=== PATIENT | female | born 1990 ===

== ENCOUNTER 2018-04-05 09:15 | Inpatient (IN) | payer OTHER ==
[2018-04-05 09:51] VITALS: BMI 28.5
[2018-04-05] MEDS ORDERED: AMPICILLIN SODIUM 2 GM VIAL ONE (09:52)
[2018-04-05] MEDS ORDERED: LIDOCAINE HCL 1% PRESERVATIVE FREE - 30ML VIAL ONE (10:08)
[2018-04-05] MEDS ORDERED: OXYTOCIN 20 UNITS in 0.9% NS 20 UNIT/1,000 ML INFUS.BAG IV ONE ×2 (10:08→12:25)
[2018-04-05 10:09] LABS: BASO % 0.2 % (0-2.0); EOS % 0.4 % (0-4.5); HEMATOCRIT 34.8 % (32.4-45.2); HEMOGLOBIN 11.6 GM/dL (10.7-15.3); LYMPH % 20.7 % (8-40); MCH 26.6 pg (25.7-33.7); MCHC 33.3 g/dl (32.0-36.0); MEAN CELL VOLUME 79.9 fl (80-96); MEAN PLT VOLUME 10.4 fl (7.5-11.1); MONO % 6.4 % (3.8-10.2); NEUT % 72.3 % (42.8-82.8); PLATELET COUNT 190 K/MM3 (134-434); RBC 4.36 M/mm3 (3.60-5.2); RDW 19.2 % (11.6-15.6)
[2018-04-05 10:24] LABS: INR 0.99 (0.83-1.09); PROTHROMBIN TIME (PATIENT) 11.7 SEC (9.7-13.0)
[2018-04-05 10:26] LABS: ACTIVATED PTT 31.5 SECONDS (25.2-36.5)
[2018-04-05 10:36] LABS: ANION GAP 9 MMOL/L (8-16); BLOOD UREA NITROGEN 8 mg/dL (7-18); CALCIUM 8.7 mg/dL (8.5-10.1); CHLORIDE 109 mmol/L (98-107); CO2 22 mmol/L (21-32); CREATININE 0.8 mg/dL (0.55-1.3); GLUCOSE,RANDOM 85 mg/dL (74-106); SODIUM 140 mmol/L (136-145)
[2018-04-05] MEDS: OXYTOCIN 20 UNITS in 0.9% NS 20 UNIT/1,000 ML INFUS.BAG IV SCH ×2 (10:50→19:30)
[2018-04-05] MEDS ORDERED: TUBERCULIN PPD 5 TU/0.1ML SYRINGE (IN PATIENT USE ONLY) ID ONE (11:00)
[2018-04-05] MEDS ORDERED: WITCH HAZEL 50% (TUCKS) 40 PAD/JAR PAD TP PRN (11:04)
[2018-04-05] MEDS ORDERED: BENZOCAINE 28 GM HEMORRHOIDAL OINTMENT TP PRN (11:04)
[2018-04-05] MEDS ORDERED: METHYLERGONOVINE MALEATE 0.2 MG/1 ML AMP IM PRN (11:04)
[2018-04-05] MEDS ORDERED: BENZOCAINE 20% 57 GM BOTTLE TP PRN (11:04)
--- NOTE | 2018-04-05 11:09 | HP ---
Past Medical History - Admission Chief Complaint: Uterine contractions History of Present Illness: 27yo @ 34+wks with mono/di twins presents with uterine contractions. No VB. +LOF at 745AM, ctx since 8AM. +FM x s PNC in [facility], late transfer to care here. History of prior C/S - Past Medical History WEATHERIZATION COORDINATOR: No: Alzheimer's, CVA, Dementia, Migraine, Multiple Sclerosis, Peripheral Neuropathy, Parkinson's, Seizure, Syncope, TIA, Vertigo, Other Cardiovascular: No: AFIB, Aneurysm, Aortic Insufficiency, Aortic Stenosis, CAD, CHF, Deep Vein Thrombosis, HTN, Hyperlipdemia, [place], Mitral Insufficiency, Mitral Stenosis, Murmur, Pulmonary Hypertension, Other Pulmonary: No: Asthma, Bronchitis, Cancer, COPD, O2 Dependent, Pneumonia, Previously Intubated, Pulmonary Embolus, Pulmonary Fibrosis, Sleep Apnea, Other Gastrointestinal: No: Ascites, Cancer, Constipation, Crohn's Disease, Diverticulitis, Diverticulosis, Esophageal Varices, Gastritis, GERD, GI Bleed, Hemorrhoids, Hiatal Hernia, Inflamatory Bowel Disease, Irritable Bowel Disease, Pancreatitis, Peptic Ulcer Disease, Ulcerative Colitis, Other Hepatobiliary: No: Cirrhosis, Cholelithiasis, Cholecystitis, Choledocholithiasis , Hepatitis A, Hepatitis B, Hepatitis C, Other Renal/: No: Renal Failure, Renal Inusuff, BPH, Cancer, Hematuria, Hemodialysis , Neurogenic Bladder, Renal Calculi, UTI, Other ...: 2 ...Para: 1 ...Term: 1 ...: 0 ...Spon : 0 ...Induced : 0 ...Multiple Gestation: 0 ...EDC by Sono: 05/12/18 Heme/Onc: No: Anemia, B12 Deficiency, Bleeding Disorder, Cancer, Current Chemotherapy, Current Radiation Therapy, Hemochromatosis, Hypercoaguable State, Myeloproliferative Synd, Sickle Cell Disease, Sickle Cell Trait, Thrombocytopenia, Other Infectious Disease: No: AIDS, C-Diff, Herpes Zoster, HIV, MRSA, STD's, Tuberculosis, VREF, Other Psych: No: Addictions, Anxiety, Bipolar, Depression, Panic, Psychosis, Schizophrenia, Other Musculoskeletal: No: Bursitis, Chronic low back pain, Hemiparesis, Hemiplegia, Osteoarthritis, Paraplegia, Other Rheumatology: No: Fibromyalgia, Gout, Lupus, Rheumatoid Arthritis, Sarcoidosis, Vasculitis, Other - Past Surgical History Hx Myomectomy: No Hx Transabdominal Cerclage: No - Smoking History Smoking history: Never smoked Have you smoked in the past 12 months: No - Alcohol/Substance Use Hx Alcohol Use: No - Social History Usual Living Arrangement: Yes: With Spouse ADL: Independent History of Recent Travel: Yes Home Medications - Allergies Allergies/Adverse Reactions: Allergies Allergy/AdvReac Type Severity Reaction Status Date / Time No Known Allergies Allergy Verified 04/05/18 09:42 - Home Medications Home Medications: Ambulatory Orders Ferrous Sulfate 325 mg PO DAILY 04/05/18 Pnv No.95/Ferrous Fum/Folic AC [ Vitamin Tablet] 1 each PO DAILY Physical Exam - Maternity Vital Signs: Vital Signs Temperature 99.7 F H 04/05/18 09:15 Pulse Rate 114 H 04/05/18 09:15 Respiratory Rate 20 04/05/18 09:15 Blood Pressure 136/85 04/05/18 09:15 O2 Sat by Pulse Oximetry (%) - Abdominal Exam/OB Number of Fetuses: Single Presentation: Vertex Contractions: Yes Regularity: Regular Intensity: Mod/Strong Monitor Mode: External Category: I Accelerations: Uniform Decelerations: None - Vaginal Exam/OB Dilatation (cm): 9 Effacement (%): 100 Amniotic Membrane Status: Ruptured Nitrazine Test: Positive Amniotic Fluid: Yes: Clear Presentation: Vertex/Position Station: 0 - Physical Exam Edema: No - Labs Lab Results: CBC, BMP 04/05/18 09:35 04/05/18 09:35 Assessment/Plan 27yo @ 34+wks here in active labor, imminent delivery Upon arrival, patient C/C/0 and pushing. Amp given given PTL NICU called Cat 1 x 2, vertex vertex by sono Anticipate x 2 Tonya Vyas MD
[2018-04-05] MEDS ORDERED: MISOPROSTOL 100 MCG TABLET PV ONE (11:15)
[2018-04-05] MEDS ORDERED: DEXTROSE 5%-LACTATED RINGERS 1,000 ML IV SCH (11:15)
--- NOTE | 2018-04-05 11:21 | PN ---
Delivery - Delivery Vaginal Delivery: V-Deb, Vacuum Assist Type of Anesthesia: Local Episiotomy/Laceration: Midline, 1st degree EBL (cc): 500 Delivery, Single - Stages of Labor Placenta: Yes: Spontaneous - Condition of Shellacker/Registered Art Therapist Present: Yes Infant Gender: Female - Feeding Plan Initial Plan: Elected not to breastfeed exclusively throughout hospitalization Delivery, Multiple Births - Condition of Multiple Births 1 (A) Gender: Female Position: Left, OA Placenta: Yes: Spontaneous [place] 2 (B) Shellacker/Registered Art Therapist Present: Yes Infant Gender: Female Position: OA Placenta: Yes: Spontaneous - [place] 1 (A) 1 Minute Score: 8 5 Minutes Score: 9 [place] 2 (B) 1 Minute Score: 9 [place] 2 (B) 5 Minutes Score: 9 Remarks - Remarks Remarks: Patient pushing with poor effort and compliance. FHT for baby A in the 190's. Decision made to proceed with vacuum assisted vaginal delivery. head at 1 + station, REJI. Vacuum placed, checked and cleared of vaginal tissue. With gentle traction and maternal effort, one pull done. No pop off. . Vacuum removed. of VFI over intact perineum from REJI position. Spontaneous delivery of anterior shoulder. Cord clamped and cut. Infant handed off. Weight 4.6lbs Apgars 8/9. Patient re-examined. head with membranes palpated. Using amnio-hook, AROM of clear fluid. Patient instructed to push, able to push head to 1+ station with several pushes. Then stopped pushing and unable to compose herself to push. presentation noted to be ALEXEI. Vacuum reapplied, checked and cleared of vaginal tissue. With maternal effort, patient pushed while gentle traction with the vacuum applied. head descended to 2 + with one push. Mom's second pushed with vacuum traction, was able to push to . Vacuum removed. of VFI from direct OA presentation over first degree laceration. Spontaneous delivery of anterior shoulder. Cord clamped and cut. Infant handed off. Weight 4.1lbs. Apgars 9/9. Spontaneous delivery of intact placenta with 3VC. Fundus firm with massage, but 400cc quickly expressed , Methergine IM given in addition to 1000mcg of [place] cytotec which was given after vaginal laceration repair. 1st degree laceration repaired with 2-0 chromic with good hemostasis and cosmesis. Bleeding improved. EBL 500. Mother and babies doing well. Tonya Vyas MD
[2018-04-05] MEDS ORDERED: ELECTROLYTE-148 SOLN 1,000 ML IV SCH (11:30)
[2018-04-05] MEDS ORDERED: MISOPROSTOL 200 MCG TABLET PV ONE ×3 (11:45)
[2018-04-05] MEDS ORDERED: ACETAMINOPHEN 325 MG TABLET (FP) ONE (13:06)
[2018-04-05] MEDS: ACETAMINOPHEN 325 MG TABLET (FP) PO PRN ×2 (13:08→18:45)
[2018-04-05] MEDS: IBUPROFEN 600 MG TABLET (FP) PO PRN (19:47)
[2018-04-05] MEDS: SENNOSIDES/DOCUSATE COMBO (SENNA PLUS) TABLET (UD) PO PRN (21:57)
[2018-04-05] MEDS: FERROUS SO4 325 MG TABLET (FP) PO SCH (21:57)
[2018-04-06] MEDS: OXYTOCIN 20 UNITS in 0.9% NS 20 UNIT/1,000 ML INFUS.BAG IV SCH ×2 (02:13→11:32)
[2018-04-06] MEDS: ACETAMINOPHEN 325 MG TABLET (FP) PO PRN ×3 (07:21→21:30)
[2018-04-06 07:27] LABS: BASO % 0.3 % (0-2.0); EOS % 0.6 % (0-4.5); HEMATOCRIT 31.9 % (32.4-45.2); HEMOGLOBIN 10.1 GM/dL (10.7-15.3); LYMPH % 15.1 % (8-40); MCH 25.4 pg (25.7-33.7); MCHC 31.5 g/dl (32.0-36.0); MEAN CELL VOLUME 80.8 fl (80-96); MEAN PLT VOLUME 9.5 fl (7.5-11.1); MONO % 5.8 % (3.8-10.2); NEUT % 78.2 % (42.8-82.8); PLATELET COUNT 139 K/MM3 (134-434); RBC 3.95 M/mm3 (3.60-5.2); RDW 20.2 % (11.6-15.6); WHITE BLOOD COUNT 13.3 K/mm3 (4.0-10.0)
--- NOTE | 2018-04-06 07:27 | PN ---
Post Progress Note Type of Delivery: Vacuum Assist Vag Del Vital Signs: Vital Signs Temperature 99.6 F 04/06/18 06:00 Pulse Rate 100 H 04/06/18 06:00 Respiratory Rate 18 04/06/18 06:00 Blood Pressure 127/80 04/06/18 06:00 O2 Sat by Pulse Oximetry (%) 100 04/05/18 11:55 Uterus: Yes: Fundus below umbilicus Abdomen/GI: Yes: Abdomen soft Lochia: Yes: Rubra Lochia, amount: Small Extremities: Yes: Calves non-tender Perineum: Yes: Intact Activity: Ambulating (Doing well. Babies in NICU) - Labs Labs: CBC WBC 12.0 K/mm3 (4.0-10.0) H 04/05/18 09:35 RBC 4.36 M/mm3 (3.60-5.2) 04/05/18 09:35 Hgb 11.6 GM/dL (10.7-15.3) 04/05/18 09:35 Hct 34.8 % (32.4-45.2) 04/05/18 09:35 MCV 79.9 fl (80-96) L 04/05/18 09:35 MCH 26.6 pg (25.7-33.7) 04/05/18 09:35 MCHC 33.3 g/dl (32.0-36.0) 04/05/18 09:35 RDW 19.2 % (11.6-15.6) H 04/05/18 09:35 Plt Count 190 K/MM3 (134-434) 04/05/18 09:35 MPV 10.4 fl (7.5-11.1) 04/05/18 09:35 Absolute Neuts (auto) 8.7 K/mm3 (1.5-8.0) H 04/05/18 09:35 Neutrophils % 72.3 % (42.8-82.8) 04/05/18 09:35 Lymphocytes % 20.7 % (8-40) 04/05/18 09:35 Monocytes % 6.4 % (3.8-10.2) 04/05/18 09:35 Eosinophils % 0.4 % (0-4.5) 04/05/18 09:35 Basophils % 0.2 % (0-2.0) 04/05/18 09:35 Nucleated RBC % 0 % (0-0) 04/05/18 09:35 Assessment/Plan 27yo s/p of twins at 34wks Rh+/babies in NICU, girl/girl Routine PP care OOB, ambulate Anticipate d/c to home PPD#2 Tonya Vyas MD
--- NOTE | 2018-04-06 09:10 | PN ---
Progress Note (short form) - Note Progress Note: Pt with temp again today 101, but exam unremarkable. WBC reviewed, 13. Will cont to monitor as there is no clear source or symptoms for the temp.
[2018-04-06] MEDS ORDERED: DIPHTH,PERTUSS(ACELL),TET 0.5 ML DISP.SYRIN IM ONE (10:00)
[2018-04-06] MEDS ORDERED: FLU VACCINE QUAD 60 MCG/0.5 ML (MDV 18-19) IM ONE (10:00)
[2018-04-06] MEDS: FERROUS SO4 325 MG TABLET (FP) PO SCH ×2 (13:29→21:29)
[2018-04-06] MEDS: PRENATAL VITAMINS W/ FOLIC ACID TABLET (FP) PO SCH (13:29)
[2018-04-06] MEDS: SENNOSIDES/DOCUSATE COMBO (SENNA PLUS) TABLET (UD) PO PRN (21:30)
[2018-04-06] MEDS: IBUPROFEN 600 MG TABLET (FP) PO PRN (21:30)
--- NOTE | 2018-04-07 09:53 | DS ---
Physical Exam-DOOR CORE ASSEMBLER Vital Signs: Vital Signs Temperature 98.4 F 04/07/18 05:48 Pulse Rate 97 H 04/06/18 21:47 Respiratory Rate 18 04/06/18 21:47 Blood Pressure 116/75 04/06/18 21:47 O2 Sat by Pulse Oximetry (%) 100 04/05/18 11:55 Constitutional: Yes: Well Nourished Eyes: Yes: Conjunctiva Clear HENT: Yes: Atraumatic Neck: Yes: Supple Cardiovascular: Yes: Regular Rate and Rhythm Respiratory: Yes: Regular Gastrointestinal: Yes: Normal Bowel Sounds External Genitalia: Yes: Normal Vaginal Exam: Yes: Normal Cervix: Yes: Normal Uterus: Yes: Firm ....Post : Yes: Uterus firm Neurological: Yes: Alert, Oriented ...Motor Strength: WNL Psychiatric: Yes: Alert, Oriented Labs: CBC, BMP 04/06/18 06:30 04/05/18 09:35 Delivery - Delivery Vaginal Delivery: V-Deb, Vacuum Assist Type of Anesthesia: Local Episiotomy/Laceration: Midline, Perineal Extension/lac, 1st degree EBL (cc): 500 Delivery, Single - Stages of Labor Placenta: Yes: Spontaneous - Condition of Neonatal Specialist/Artifacts Conservator Present: Yes Gender: Female - Feeding Plan Initial Plan: Elected not to breastfeed exclusively throughout hospitalization Delivery, Multiple Births - Stages of Labor First Stage Date: 04/05/18 Time: 08:00 Second Stage Date: 04/05/18 Time: 09:55 Delivery Baby "A" Date: 04/05/18 Time: 10:36 Placenta/Membranes "A" Date: 04/05/18 Time: 10:50 Delivery Baby "B" Date: 04/05/18 Time: 10:46 Placenta/Membranes "B" Date: 04/05/18 Time: 10:50 - Condition of Multiple Births [place] 1 (A) Neonatal Specialist/Artifacts Conservator Present: Yes Neonatal Specialist: Meri Newberry Gender: Female Weight: 4 lb 6 oz Position: Left, OA Total Hours ROM (HRS/MINS): 3HRS 5MIN [place] 2 (B) Neonatal Specialist/Artifacts Conservator Present: Yes Neonatal Specialist: Meri Newberry Gender: Female Weight: 4 lb 1 oz Position: OA Total Hours ROM (HRS/MINS): 12MIN - 1 (A) 1 Minute Score: 8 5 Minutes Score: 9 [place] 2 (B) 1 Minute Score: 9 [place] 2 (B) 5 Minutes Score: 9 Discharge Summary Reason For Visit: LABOR Current Active Problems Status post vacuum-assisted vaginal delivery (Acute) Procedures: Principal: Vacuum assisted vaginal delivery Hospital Course: Routine care Condition: Good - Instructions Diet, Activity, Other Instructions: Regular diet No douching, no sexual intercourse x 6 weeks F/U in clinic in 6 weeks Disposition: HOME - Home Medications Comprehensive Discharge Medication List: Ambulatory Orders Ferrous Sulfate 325 mg PO DAILY 04/05/18 Pnv No.95/Ferrous Fum/Folic AC [ Vitamin Tablet] 1 each PO DAILY
[2018-04-07] MEDS: PRENATAL VITAMINS W/ FOLIC ACID TABLET (FP) PO SCH (10:00)
[2018-04-07] MEDS: FERROUS SO4 325 MG TABLET (FP) PO SCH (10:00)
[2018-04-07 11:18] VITALS: BP 124/74; PULSE 118
[2018-04-07 13:41] VITALS: TEMP 99.2
== END 2018-04-07 13:35 | disposition home or self-care (01) | DRG 560 ==
LOC: JLDR 09:15 → J3W 14:16
PROVIDERS: ADMIT Obstetrics & Gynecology; ATTEND Obstetrics & Gynecology
PROC: 0HQ9XZZ Repair Perineum Skin, External Approach (ICD-10-PCS; principal; 2018-04-05)
PROC: 10D07Z6 Extraction of Products of Conception, Vacuum, Via Natural or Artificial Opening (ICD-10-PCS; 2018-04-05)
DX: O30.043 Twin pregnancy, dichorionic/diamniotic, third trimester (principal); O70.0 First degree perineal laceration during delivery; Z3A.34 34 weeks gestation of pregnancy; Z37.2 Twins, both liveborn
CPT/HCPCS: 36415; 80048; 85025; 85610; 85730; 86593; 86850; 86900; 86901; 87389; 90686; 90715; G0008